=== PATIENT | male | born 1995 | race Two or more races ===

== ENCOUNTER 2020-06-08 14:07 | Emergency (ER) | payer SELFPAY ==
[2020-06-08 14:11] VITALS: BP 116/72
== END 2020-06-08 15:15 | disposition home or self-care (01) ==
LOC: ED 15:00
DX: R50.9 Fever, unspecified (principal); Z20.828 Contact with and (suspected) exposure to other viral communicable diseases
CPT/HCPCS: 36415; 87635; 99283